=== PATIENT | male | born 1985 | race Caucasian/White ===

== ENCOUNTER 2016-06-06 19:21 | Emergency (ER) | payer OTHER ==
[~2016-06-06] VITALS: Ht 177.8 cm; Wt 94.0 kg
--- NOTE | 2016-06-06 19:16 | ED.REPORT ---
HPI-Overdose/Alcohol Toxicity Date of Service Jun 06, 2016 ED Provider: Dr. Cardona Pt is a 31 y/o healthy male w/ a hx of chronic back pain presenting to the ED via EMS due to adverse opiate and alcohol interaction onset prior to arrival. The patient is prescribed Percocet for back pain and today while he was at his friend's house today he took 2 Percocet 2 hours ago and drank 4-5 beers within the past hour. He reportedly became unconscious and EMS was called. Upon EMS arrival, he was being bagged by firefighters. He was blue to the face with agonal respirations. EMS administered 1 mg of IV Narcan with complete symptom relief. He arrives to the ED awake and alert with no complaints. He has experienced 1 episode of mild diarrhea today. He denies nausea, vomiting, hematochezia. He denies illicit drug use. He has never experienced an episode similar to this. Nursing Notes Stated Complaint: OPIAT OVERDOES Nursing Notes Reviewed: Yes Allergies: Coded Allergies: Penicillins (Verified Allergy, Unknown, 12/14/15) Scheduled PRN Cyclobenzaprine (Cyclobenzaprine) 5 Mg Tablet 5 MG PO TID PRN PRN Spasm oxyCODONE (oxyCODONE) 5 Mg Capsule 5-10 MG PO Q4H PRN PRN For Pain Miscellaneous Medications Acetaminophen (Pain Reliever) 500 Mg Capsule 500 MG PO General Time Seen by Provider: 19:17 Chief Complaint Other (Opiate and alcohol interaction) Initial Psychiatric Assessment: Deny suicidal intent/plan Hx Obtained From: Patient, EMS Arrived By: Ambulance Onset Occurred: Just prior to arrival Progression Since Onset: Resolved Severity: Current: No pain currently Severity: Maximum: No pain Recent Healthcare: No recent hospitalization Similar Sx Previous: No Past Medical History Past Medical History Chronic back pain Otherwise denies Past Surgical History None reported Smoking History Unknown if Ever Smoker Social History Alcohol Use: "Social" Drug Use: Denies drug use Ambulatory Status Independent Review of Systems Constitutional: Denies: Chills, Fever GI: Reports: Diarrhea, Denies: Abdominal pain, Bloody/tarry stool, Hematochezia, Nausea, Vomiting Neurologic: Reports: Change LOC Complete sys rev & neg: except as marked. Physical Exam Initial Vital Signs Vital Signs (First) Date Time Temp Pulse Resp B/P Pulse Ox O2 Delivery O2 Flow Rate FiO2 06/06/16 19:23 36.8 120 13 157/99 98 Room Air Initial VS: Reviewed Head / Eyes: Atraumatic, Normocephalic, PERRL ENT: Mucous membranes moist, Conjunctiva normal, No scleral icterus Neck: Supple, Full range of motion Extremities: Vascular intact, Neuro intact, No swelling, No tenderness Skin: Warm, Dry, No cyanosis General/Constitutional: Awake, Alert, No acute distress, Well appearing, Cooperative, Not toxic appearing Respiratory / Chest: Atraumatic, Breath sounds NL, Breath sounds = bilat, No respiratory distress, No rales, No rhonchi, No wheezing, No retractions, No stridor, No chest tenderness, No chest wall deformity, No crepitus Cardiovascular: Regular rhythm, Heart sounds NL, No gallop, No murmurs, No rubs , Cap refill not delayed, Peripheral circulation NL Heart Rate / Rhythm: Positive: Tachycardia Abdomen: Atraumatic, Soft, Non-tender, No guarding, No rebound, No palpable mass Neurologic: Oriented X3, Speech NL, No motor deficits, No sensory deficits, CN II - XII intact, Cerebellar NL, Memory NL Psychiatric: Affect NL, Mood NL, Not suicidal, Not homicidal, No hallucinations , Cognitive function NL, Judgment/insight NL, Thought content NL Re-Eval/Medical Decision Re-Evaluation/Progress : Time of Eval: 20:27 Patient Status: Condition resolved, Complete relief Re-Evaluation/Progress Note: Pt rechecked. Informed pt of plan for treatment. Pt understands and agrees with plan for treatment. F/U instructions and RTER warnings given. All questions addressed. Counseled Regarding: Diagnosis, Need for follow-up, When/why to return to ED Discharge & Departure Impression: Primary Impression: Accidental overdose Encounter type: initial encounter Qualified Code: T50.901A - Poisoning by unspecified drugs, medicaments and biological substances, accidental ( unintentional), initial encounter )( Condition at Discharge: No danger to self, No danger to others, No suicidal ideation, No homicidal ideation Disposition: Home Discharge Condition All VS Reviewed: Yes Condition: Stable Additional Instructions: Your sudden loss of consciousness and decreased breathing were certainly related to your narcotic dosing in conjunction with alcohol. Of course as has been amply reinforced, he should never combine alcohol with narcotics. No more alcohol today of course and no additional pain medication dosing until midnight or later. Scribe Attestation Portions of this note were transcribed by Vazquez Davis. I, Dr. Cardona personally performed the history, physical exam and medical decision-making; I reviewed and confirmed the accuracy of the information in the transcribed note. Signed by Justice Zimmerman, 06/06/162029 Luciano Cardona MD Jun 06, 2016 19:15 VAZQUEZ DAVIS Jun 06, 2016 19:26
[~2016-06-06 19:21] MED LIST: ACET500C16 PO; CYCL5TAB PO; OXYC5CAP4 PO
[2016-06-06 19:23] VITALS: BP 157/99; PULSE 120; RESP 13; O2SAT 98
[2016-06-06 20:23] VITALS: BP 141/97; PULSE 106; RESP 17; O2SAT 97
== END 2016-06-06 20:37 | disposition home or self-care (01) ==
LOC: SED 19:21 → EDBD 19:21 → SED 20:37
DX: R40.20 Unspecified coma (principal); R19.7 Diarrhea, unspecified; R23.0 Cyanosis; T40.695A Adverse effect of other narcotics, initial encounter; X58.XXXA Exposure to other specified factors, initial encounter; Y92.009 Unspecified place in unspecified non-institutional (private) residence as the place of occurrence of the external cause; Y93.89 Activity, other specified; Y99.8 Other external cause status; F10.10 Alcohol abuse, uncomplicated; M54.9 Dorsalgia, unspecified; G89.29 Other chronic pain; Z88.0 Allergy status to penicillin